=== PATIENT | male | born 1965 | race Hispanic/Latino ===

== ENCOUNTER → 2022-04-11 | Day surgery (SDC) | payer BC ==
--- NOTE | 2022-04-11 12:58 | RAD REPORT ---
EXAM DESCRIPTION: US - AXILLA ONLY - 04/11/2022 11:21 am CLINICAL HISTORY: C85.1 COMPARISON: Ultrasound 02/24/2022 FINDINGS: Patient presented for ultrasound-guided biopsy of a possible mass in the right axilla. Cheryl or imaging was reviewed. On physical exam there was fullness of the right axillary soft tissues when compared to the left with out a discrete mass palpable. On sonographic evaluation the axillary artery and vein are normal. Normal fatty tissues were seen in the right axilla with no discernible normal or abnormal lymph nodes seen. No defined mass identifiabl e. If a lipoma is present, margins are not distinguishable from the surrounding fatty tissue. After thorough evaluation of the right axilla there was no identifiable mass and therefore no biopsy was performed. The biopsy component was canceled. Follow-up can be performed as clinical findings warrant. MRI or CT imaging of the axillary region cou ld be performed though not likely to provide significant additional finding. Findings were discussed with the patient in detail. IMPRESSION: Normal fatty tissues are seen in the right axilla. No defined mass was identifiable. In the absence of a defined mass, the biopsy was canceled.
== END ==
LOC: DS 10:13
PROVIDERS: ATTEND Internal Medicine
DX: C85.10 Unspecified B-cell lymphoma, unspecified site (principal)
CPT/HCPCS: 76882